=== PATIENT | male | born 1965 | race Caucasian/White ===

== ENCOUNTER 2023-05-04 22:54 | Inpatient (IN) | payer OTHER, SELFPAY ==
[2023-05-04 16:10] VITALS: BMI 19.4
[2023-05-04 16:36] VITALS: BP 121/69
[2023-05-04 17:05] LABS: % Eosinophils 7.6 % (0-6); % Lymphocytes 69.6 % (20.5-51.1); % Monocytes 3.8 % (1.7-9.3); Absolute Eosinophils 0.1 10^3/uL (0-0.7); Absolute Lymphocytes 0.6 10^3/uL (1.2-3.4); Hematocrit 35.5 % (39.0-52.0); Hemoglobin 13.1 g/dL (13.0-18.0); Mean Corp Hgb Conc. 36.9 g/dL (33.0-37.0); Mean Corpuscular Volume 92.2 fL (80.0-94.0); Mean Platelet Volume 11.2 fL (7.4-10.4); Nucleated Red Blood Cells % 0 % (-); Platelet Count 69 10^3/uL (130-400); Red Blood Cell Count 3.85 10^6/uL (4.70-6.10); Red Cell Dist. Width 12.8 % (11.5-14.5)
[2023-05-04 17:19] LABS: Lactic Acid 0.9 mmol/L (0.7-2.0)
[2023-05-04 17:21] LABS: ALT (SGPT) 13 U/L (0-50); AST (SGOT) 23 U/L (17-59); Albumin 3.8 g/dl (3.5-5.0); Alkaline Phosphatase 68 U/L (38-126); Blood Urea Nitrogen 21 mg/dl (9-20); Calcium 8.6 mg/dl (8.4-10.2); Carbon Dioxide 30 mmol/L (22-30); Chloride 99 mmol/L (98-107); Glucose 102 mg/dl (70-99); Potassium 3.5 mmol/L (3.5-5.1); Sodium 135 mmol/L (135-145); Total Bilirubin 0.7 mg/dl (0.2-1.3); Total Protein 6.8 g/dl (6.3-8.2); eGFR > 60.00
[2023-05-04 17:28] LABS: Absolute Neutrophils 0.2 10^3/uL (1.4-6.5); White Blood Cell Count 0.8 10^3/uL (4.8-10.8)
[2023-05-04 17:54] LABS: COVID-19 Antigen Negative (Negative)
[2023-05-04 20:18] VITALS: BP 112/78
--- NOTE | 2023-05-04 20:31 | ED.GENMED ---
History of Present Illness
General
Chief Complaint: Abnormal Lab Value
Source: patient and spouse
Exam Limitations: none
Time Seen by Provider: 05/04/23 19:23
Nursing documentation reviewed up to this point in time: agreed with
Travel History
Have you had any contact with someone who has COVID-19?: No
Do you have any symptoms of coronavirus? Fever > 100 degrees, chills, cough, shortness of breath, sore throat, loss of taste or smell, muscle aches, or headache?: No
History of Present Illness
History of Present Illness:
57-year-old male with no reported chronic medical issues presents with his for evaluation of fever, cough, neutropenia. Patient reports that he has been feeling generally fatigued and unwell and has gotten sick more than usual over the past
year. He had outpatient blood work on Tuesday which showed that he had new onset leukopenia and thrombocytopenia. He was supposed to follow-up with oncology an appointment tomorrow at 9 AM (Dr. Meadows). Unfortunately he has been feeling unwell over
the past few days says he has been coughing and had fevers with a Tmax 102 �F. He says he has been feeling fatigued and has had some bodyaches and chills. Denies any chest pain or shortness of breath. No nausea, vomiting, diarrhea. No abdominal
pain. No urinary symptoms. Oncology referred to the emergency room to assess given fevers and outpatient neutropenia.
Review of Systems
Review of Systems
All Other Systems: ROS reviewed and negative except as documented in HPI and ROS
Constitutional: Reports fever, fatigue and chills
EENT: Denies sore throat or runny nose
Respiratory: Reports cough; Denies trouble breathing
Cardiac: Denies chest pain or palpitations
ABD/GI: Denies abdominal pain, nausea, vomiting or diarrhea
: Denies dysuria, frequency or flank pain
Musculoskeletal: Denies neck pain or back pain
Neurological: Denies headache, weakness or numbness
Phy Exam
Physical Exam
Physical Exam:
General: Awake, alert, oriented x3; no acute distress
Head: Normocephalic, atraumatic
Eyes: Conjunctiva normal, sclera anicteric
Throat: Airway intact, handling secretions
Neck: Trachea midline, supple without meningismus
Lungs: Normal pulse ox on room air, normal respiratory, left lower lobe rales appreciated
Heart: Regular rate and rhythm, no murmurs, gallops, or rubs
Abd: Soft, non distended, nontender
Neuro: Cranial nerves grossly intact, speech fluid
Skin: no rash
Extremities: No edema in extremities, equal pulses in all extremities
Scores
Heart Failure Risk
Heart Failure Risk Score: Not Applicable
Heart Score for Chest Pain Patients
STEMI patient?: Not applicable
Withdrawal Assessment of Alcohol
Withdrawal Assessment Completed?: Not applicable
Course
Orders/Labs/Results
Orders:
Orders
05/04/23 16:51
COVID-19 Antigen Urgent
Source: Nasal Swab
Complete Blood Count/With Diff Urgent
Comprehensive Metabolic Panel Urgent
Lactic Acid Urgent
Blood Culture Urgent
[facility]AR[facility] Source: Blood/Venous
Specimen Description:
Influenza A+B Rapid Molecular Urgent
GARFIELD Source: Nasal Swab
Specimen Description:
05/04/23 20:21
ONCOLOGY CONSULT Urgent
Consulting Provider: Ed Meadows
Was physician already notified: Yes
CR Chest - 2 Views Urgent
Comment:
Reason For Exam: cough, fever, LLL rales
05/04/23 20:49
Urinalysis Reflex To Culture Urgent
Date Specimen was Collected: 05/04/23
Time Specimen was Collected: 20:32
Blood Culture Q30M
GARFIELD Source: Blood/Venous
Specimen Description:
05/04/23 21:39
Cefepime HCl [Maxipime] 1,000 mg IV NOW STA
Vancomycin [Vancocin] 1,500 mg 0.9% Sodium Chloride [Nss] 20 ml 0.9% Sodium Chloride 250 ml [Nss] 250 ml IV NOW
Abnormal Lab Results
05/04/23 05/04/23
16:51 20:49
WBC 0.8 L* 10^3/uL
(4.8-10.8)
RBC 3.85 L 10^6/uL
(4.70-6.10)
Hct 35.5 L %
(39.0-52.0)
MCH 34.0 H pg
(27.0-31.0)
Plt Count 69 L 10^3/uL
(130-400)
MPV 11.2 H fL
(7.4-10.4)
Absolute Neuts (auto) 0.2 L* 10^3/uL
(1.4-6.5)
Absolute Lymphs (auto) 0.6 L 10^3/uL
(1.2-3.4)
Absolute Monos (auto) 0.0 L 10^3/uL
(0.1-0.6)
Neutrophils % 19.0 L %
(42.2-75.2)
Lymphocytes % 69.6 H %
(20.5-51.1)
Eosinophils % 7.6 H %
(0-6)
BUN 21 H mg/dl
(9-20)
Glucose 102 H mg/dl
(70-99)
Urine Ketones 2+ A
(Negative)
05/04/23 16:51
05/04/23 16:51
Vital Signs
Initial and Last Documented VS:
Initial Vital Signs
Temp Pulse Resp BP Pulse Ox
36.7 C 80 20 121/69 98
05/04/23 16:36 05/04/23 16:36 05/04/23 16:36 05/04/23 16:36 05/04/23 16:36
Last Documented Vital Signs
Temp Pulse Resp BP Pulse Ox
36.8 C 80 16 113/74 97
05/04/23 20:18 05/04/23 20:18 05/04/23 20:18 05/04/23 21:31 05/04/23 21:32
MDM/Problems Addressed
Differential Diagnosis Includes:
Neutropenic fever, bacteremia, UTI, pneumonia, viral syndrome
MDM/Problems Addressed:
57-year-old male presents for evaluation of fever, cough, chills for the past few days in the setting of recently discovered neutropenia. Fortunately vital signs are normal and patient is afebrile here. Physical exam as above. Plan to place an IV
check labs including a CBC and a CMP, blood cultures. Will send a urinalysis and culture. Check viral swabs. Check a chest x-ray. Monitor closely reassess after the above.
CBC reviewed shows neutropenia with an ANC of 200, thrombocytopenia with a platelet count of 69,000; hemoglobin normal. CMP no clinically significant abnormalities. Viral swabs are been negative. Discussed case with oncology agreed with
infectious workup as above to start.
Chest x-ray concerning for left lower lobe pneumonia. Given neutropenia will treat with IV antibiotics admit for continued management. Consult to hematology/oncology to evaluate while admitted. Case discussed with hospitalist for admission.
*Radiology
Radiology exam reviewed: preliminary read by ED provider and radiology read reviewed
*Pulse Oximetry
Patient hypoxic: no
*Critical Care Note
Total Time (30-74mins, 75-104mins- exclusive of procedures): Not Applicable
Data Reviewed
Source: patient and spouse
Patient Management
Discussion with other providers: Hospitalist (Discussed with hospitalist) and [place] (Discussed with oncology)
Escalation/DeEscalation of care consider admission/obs:
Admission indicated
ED Attending Note
-
Portions of this chart may have been created with voice recognition software.� Occasional wrong word or��sound alike� substitutions may have occurred due to the inherent limitations of voice recognition software.
Discharge Plan
Departure
Patient Disposition: Admit
Date of Disposition: 05/04/23
Time of Disposition: 21:46
Admit to doctor: Robert
Presentation/result/management discussed w/ accepting MD/DO: Hospitalist
Discharge Problem:
Pneumonia, Neutropenia
Prescriptions:
No Action
acetaminophen [Tylenol] 325 mg Tablet
650 mg PO Q6HPRN PRN (Reason: mild pain)
zinc sulfate 50 mg zinc (220 mg) Tablet
50 mg PO DAILY
ascorbic acid (vitamin C) [Vitamin C] 500 mg Tablet
500 mg PO DAILY
vitamin B complex [B Complete] Tablet
1 tab PO DAILY
Referrals:
Marcos Dumont MD [Family Provider] -
Interventions
Interventions:
*Risk Screen - Suicide Last Done: 05/04/23 16:36
*General Assessment Last Done: 05/04/23 16:36
*Neglect/Abuse Screening Last Done: 05/04/23 16:36
ED- Fall Risk Assessment Last Done: 05/04/23 20:18
*ED COVID-19 Vaccine History Last Done: 05/04/23 20:17
[2023-05-04 21:15] LABS: Urine Albumin Trace (Neg - Trace); Urine Bilirubin Negative (Negative); Urine Character Clear (Clear); Urine Color Yellow; Urine Glucose Negative (Negative); Urine Ketone 2+ (Negative); Urine Leukocyte Negative (Negative); Urine Nitrite Negative (Negative); Urine Occult Blood Negative (Negative); Urine Specific Gravity 1.025 (<1.030); Urine Urobilinogen 1+ (Neg - 1+)
[2023-05-04 21:31] VITALS: BP 113/74
[2023-05-04 22:00] VITALS: BP 110/73
[2023-05-04] MEDS: MAXIPIME 1000 MG IV (22:19)
[2023-05-04] MEDS: VANCOCIN 300 MG IV (22:21)
[2023-05-04] MEDS: VANCOCIN 300 ML IV (22:21)
--- NOTE | 2023-05-04 22:34 | HPS.HSE ---
Family Physician
-
Family Physician: Marcos Dumont MD
Chief Complaint
-
cough, fever
History of Present Illness
57-year-old male with past medical history of SVT, leukopenia presenting for fever, cough and neutropenia. Patient developed weakness, productive cough, nausea, shortness of breath and fevers over the past 3 to 4 days. He had outpatient blood work
on Tuesday which showed that he had worsening leukopenia and new onset thrombocytopenia. He was supposed to follow-up with oncology and an appointment tomorrow at [address] Meadows. Fortunately has not been feeling well over the past few days and
has been coughing with fever of 102. He has body aches and chills. Denies any chest pain or shortness of breath. Denies nausea vomiting or diarrhea. Denies any abdominal pain. Denies any urinary symptoms. Oncology referred him to the emergency
room given fever and neutropenia.
He had a history of mild leukopenia in the past that was being monitored.
No smoking or alcohol use.
No family history of leukemia. Father had gastric cancer. Father had prostate cancer. Father's father had brain cancer. Some other cancers in the family as well.
Medical History
Past Medical History
Past Medical History: Reports Other ( SVT, leukopenia)
Past Surgical History: Reports Orthopedic
Social History
Tobacco: Non-smoker
Alcohol: None
Drug: None
Family History
Family History: Not pertinent
Allergies / Home Medications
Allergies reflects when Allergies were last updated in [facility].
Home Medications with original date entered in [facility]
Allergy/Medication List:
Allergies
Allergy/AdvReac Type Severity Reaction Status Date / Time
No Known Allergies Allergy Verified 05/04/23 16:35
Home Medications
acetaminophen 325 mg tablet (Tylenol) 650 mg PO Q6HPRN PRN mild pain 05/04/23
ascorbic acid (vitamin C) 500 mg tablet (Vitamin C) 500 mg PO DAILY 05/04/23
vitamin B complex 1 tab PO DAILY 05/04/23
zinc sulfate 50 mg zinc (220 mg) tablet 50 mg PO DAILY 05/04/23
Review of Systems
-
History Source: Patient
A 12 point ROS was completed and negative except as noted: Yes
Constitutional: Reports No Symptoms
EENT: Reports No Symptoms
Respiratory: Reports See HPI
Cardiac: Reports No Symptoms
Abdomen/GI: Reports No Symptoms
: Reports No Symptoms
Musculoskeletal: Reports No Symptoms
Skin: Reports No Symptoms
Neurological: Reports No Symptoms
Endocrine: Reports No Symptoms
Hematologic/Lymphatic: Reports No Symptoms
Psych: Reports No Symptoms
Physical Exam
Vital Signs
Vital Signs
Temp Pulse Resp BP Pulse Ox
98.3 F 80 16 113/74 97
05/04/23 20:18 05/04/23 20:18 05/04/23 20:18 05/04/23 21:31 05/04/23 21:32
Physical Exam
General: Well Developed, Well Nourished and No Apparent Distress
HEENT: NormoCephalic, Moist mucous membranes and Atraumatic
Respiratory: Clear
Cardiac: S1/S2 and Regular Rhythm; No Murmur or Rub
GI: Soft, Non Tender, Non Distended and Normal Bowel Sounds; No Organomegaly
Rectal: Deferred by Provider
Musculoskeletal: No Clubbing, No Cyanosis and No Edema
Skin: No Rash
Neuro: Nonfocal/grossly intact
Laboratory Results
-
05/04/23 16:51
05/04/23 16:51
Laboratory Results
Lactic Acid 0.9 mmol/L (0.7-2.0) 05/04/23 16:51
Total Bilirubin 0.7 mg/dl (0.2-1.3) 05/04/23 16:51
AST 23 U/L (17-59) 05/04/23 16:51
ALT 13 U/L (0-50) 05/04/23 16:51
Alkaline Phosphatase 68 U/L (38-126) 05/04/23 16:51
Data Reviewed
-
Lab Data: Labs Reviewed by me
Old Records: Reviewed
Impression/Plan
-
IMPRESSION:
PLAN:
# Neutropenic sepsis (leukopenia, fever) secondary to pneumonia
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
-Absolute neutrophils of 200
-COVID-negative
-Influenza negative
-Check blood cultures
-IV fluids
-Vancomycin/Zosyn
-Oncology consulted
# Thrombocytopenia likely due to underlying hematologic process
-Platelets of 70
History of SVT
Full code
DVT prophylaxis SCDs
Regular diet
[2023-05-04 23:00] VITALS: BP 114/83
[2023-05-05 00:15] VITALS: BP 121/70; BMI 19.5
--- NOTE | 2023-05-05 00:18 | PTCARENOTE ---
Pt arrived to unit from the ED on a stretcher on r.a, and was ambulatory from stretcher to bed. Pt is in bed with at bedside, call cifuentes is in reach will continue to monitor.
[2023-05-05] MEDS: NSS 1000 IV ×3 (01:20→15:20)
[2023-05-05 04:52] LABS: Hematocrit 27.3 % (39.0-52.0); Mean Corp Hgb Conc. 36.3 g/dL (33.0-37.0); Mean Corpuscular Hgb 33.4 pg (27.0-31.0); Mean Corpuscular Volume 92.2 fL (80.0-94.0); Mean Platelet Volume 12.2 fL (7.4-10.4); Platelet Count 59 10^3/uL (130-400); Red Blood Cell Count 2.96 10^6/uL (4.70-6.10); Red Cell Dist. Width 12.5 % (11.5-14.5)
[2023-05-05 05:00] LABS: Hemoglobin 9.9 g/dL (13.0-18.0); White Blood Cell Count 0.6 10^3/uL (4.8-10.8)
[2023-05-05] MEDS: ZOSYN 50 IV ×3 (05:06→18:22)
[2023-05-05 05:25] LABS: ALT (SGPT) < 10 U/L (0-50); AST (SGOT) 14 U/L (17-59); Albumin 2.2 g/dl (3.5-5.0); Alkaline Phosphatase 45 U/L (38-126); Blood Urea Nitrogen 11 mg/dl (9-20); Calcium 6.7 mg/dl (8.4-10.2); Carbon Dioxide 23 mmol/L (22-30); Chloride 109 mmol/L (98-107); Estimated Creatinine Clearance > 125 ml/min; Glucose 82 mg/dl (70-99); Potassium 3.2 mmol/L (3.5-5.1); Sodium 137 mmol/L (135-145); Total Bilirubin 0.6 mg/dl (0.2-1.3); Total Protein 4.7 g/dl (6.3-8.2); eGFR > 60.00
[2023-05-05 06:24] LABS: Hemoglobin 11.2 g/dL (13.0-18.0); Mean Corp Hgb Conc. 36.1 g/dL (33.0-37.0); Mean Corpuscular Hgb 33.4 pg (27.0-31.0); Mean Corpuscular Volume 92.5 fL (80.0-94.0); Mean Platelet Volume 11.5 fL (7.4-10.4); Platelet Count 59 10^3/uL (130-400); Red Blood Cell Count 3.35 10^6/uL (4.70-6.10); Red Cell Dist. Width 12.5 % (11.5-14.5)
[2023-05-05 06:26] LABS: White Blood Cell Count 0.6 10^3/uL (4.8-10.8)
[2023-05-05 06:38] LABS: ALT (SGPT) < 10 U/L (0-50); AST (SGOT) 20 U/L (17-59); Albumin 2.9 g/dl (3.5-5.0); Alkaline Phosphatase 58 U/L (38-126); Blood Urea Nitrogen 12 mg/dl (9-20); Calcium 7.9 mg/dl (8.4-10.2); Carbon Dioxide 27 mmol/L (22-30); Chloride 105 mmol/L (98-107); Estimated Creatinine Clearance 117 ml/min; Glucose 95 mg/dl (70-99); Potassium 3.7 mmol/L (3.5-5.1); Sodium 135 mmol/L (135-145); Total Bilirubin 0.8 mg/dl (0.2-1.3); Total Protein 5.7 g/dl (6.3-8.2); eGFR > 60.00
[2023-05-05 07:24] LABS: Band Neutrophils 0 % (0-3); Eosinophils 4 % (0-6); Lymphocytes 80 % (20-51); Monocytes 4 % (2-9); Normal RBC Morphology Yes; Platelets Checked Yes; Segmented Neutrophils 12 % (42-75); Total Cells Counted 100
[2023-05-05 07:30] VITALS: BP 128/82
[2023-05-05] MEDS: B COMPLEX w/VITAMIN C 1 CAPLET PO (08:58)
[2023-05-05] MEDS: ZINC SULFATE 220 MG PO (08:58)
[2023-05-05] MEDS: VITAMIN C 500 MG PO (08:59)
--- NOTE | 2023-05-05 09:31 | PHA.VAN.IN ---
Assessment
- Assessment
Renal Function: Appears similar to baseline
Concomitant Antimicrobials: piperacillin/tazobactam
AUC Dosing Plan
- Dosing Variables
Dosing Weight (kg): 87
Dosing CrCl (ml/min): 125
Vd coefficient (L/kg): 0.7
Utilized IBW for dosing weight since BMI < 20
- Empiric Dosing
Initial / Loading Dose: 1500mg - 05/04 22:21
Maintenance Regimen: Vanc 1500mg Q12H
Estimated AUC (mcg*h/mL): 493
Estimated Peak (mcg*h/mL): 33.9
Estimated Trough (mcg/ml): 10.9
Estimated Half Life (H): 6.4
- Monitoring
No levels ordered at this time: consider levels in next few days
MRSA Screen: Ordered per protocol
Pharmacokinetics Vancomycin I
- -
Patient Age: 57
Patient Sex: Male
Vancomycin Day #: 1
Indication: Pulmonary/Respiratory
Requesting Provider: Dr. Keane
Pertinent Antimicrobial Allergies:
NKDA
Height / Weight:
Height 6 ft 4 in
Actual Weight 72.575 kg
IBW in k.8
Pertinent Past Medical History: BMI ~19.5
- Vital Signs / Lab Results
Temp Pulse Resp BP Pulse Ox
98.0 F 69 20 128/82 96
05/05/23 07:30 05/05/23 07:30 05/05/23 07:30 05/05/23 07:30 05/05/23 07:30
Lab Results - Hematology
05/04/23 05/05/23 05/05/23
16:51 04:32 05:41
WBC 0.8 L* 0.6 L* 0.6 L*
Band Neutrophils 0 Cancelled
Lab Results - Chemistry
05/04/23 05/05/23 05/05/23
16:51 04:32 05:41
BUN 21 H 11 12
Creatinine 0.9 0.6 L 0.7
Estimated Creat Clear > 125 117
Albumin 3.8 2.2 L D 2.9 L
05/04/23
16:51
Lactic Acid 0.9
Lab Results - Urine
05/04/23
20:49
Urine Nitrite (Reflex) Negative
Leukocyte Esterase Rfl Negative
Microbiology Results
05/04/23 16:51 Influenza Types A & B ([facility]) - Final
Nasal Swab Negative for Influenza A & B, NAAT
Negative results must be combined with clinical observations
and patient history.
Nucleic Acid Amplification test (NAAT)performed on the
[employer] platform.
--- NOTE | 2023-05-05 11:05 | CM ---
Patient seen bedside.
IA completed.
Patient lives with spouse and 3 sons in a 2 story home with 8 steps to enter.
Patient with some difficulty with steps, but can manage.
Patient does not ambulate with assistive devices.
Patient can drive, but has not been recently due to weakness.
Has not had VN services in the past.
PCP: Dr Posadas, but sees TATYANA Yen
Pharmacy: [facility] in [place].
Plan: home, no needs anticipated.
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
[2023-05-05 15:55] VITALS: BP 129/73
--- NOTE | 2023-05-05 16:28 | W.PN.HOSP.TC ---
Today's Communication/Plan
-
All discussed with the patient and his at the bedside
Discussed with the nurse
Assessment / Plan
Assessment / Plan
Physical exam:
General: Pale looking, awake, alert and oriented x3, not in distress and holds appropriate conversation.
HEENT: No active discharge, ecchymosis or bruising, moist lips, tongue and mucous membrane.
Eyes: No discharge or red conjunctiva, no nystagmus, pupils are reactive and equal
Neck:Supple, no JVD no bruit no goiter.
Respiratory: Normal AP contour and diameter, normal chest wall movement, normal respiratory effort, no respiratory distress,
Lungs: Good air entry bilaterally, no wheezing or rhonchi, no rales or crackles
Heart: S1, S2 regular, normal rate, no added sound.
Gastrointestinal: Positive bowel sounds, soft, nontender, no guarding or rigidity or organomegaly
Musculoskeletal: , no chest wall abnormality or tenderness. All joints and extremities have good range of motion, no muscle tenderness or any joint swelling or tenderness.
Extremities: No pitting edema, good peripheral pulses, good range of motion
Skin: Warm and dry, no ulceration, normal color.
Neurological: Awake, alert and oriented x3, no facial droop, speech clear and comprehensive, good muscle tone, normal sensory and motor function
Psychiatric: Normal mood, normal thought and judgment, normal affect,
Assessment and plan:
# Neutropenic sepsis (leukopenia, fever) secondary to pneumonia, this is something new to me for his chronically neutropenic but usually stays above 3, never been so low.
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
-Absolute neutrophils of 200
-Neutropenic isolation.
Continue broad-spectrum biotic to cover pneumonia
IV fluid
Cough medication as needed
Blood cultures pending.
Recheck lab.
Left basilar pneumonia:
As above.
# Thrombocytopenia likely due to underlying hematologic process
-Platelets of 59 today.
No evidence of bleeding
Monitor
Hematology input appreciated type consider bone marrow biops
History of SVT
Full code
DVT prophylaxis SCDs
Anticipated Discharge: > 48 hours
Subjective/Interval History
-
Date of Service: May 05, 2023
Seen and examined, awake and alert, at the bedside, still having on and off fever and feeling lousy and lethargic and pale looking, denies any bleeding event or change in stool or urine color.
Still neutropenic and white cell count is same, 12.6. And he is on a reverse isolation.
Objective Data
-
Labs:
Laboratory Results
05/05/23 05/05/23
04:32 05:41
WBC 0.6 L* 0.6 L*
Hgb 9.9 L D 11.2 L
Hct 27.3 L 31.0 L
Plt Count 59 L 59 L
Sodium 137 135
Potassium 3.2 L 3.7
Chloride 109 H 105
Carbon Dioxide 23 27
BUN 11 12
Creatinine 0.6 L 0.7
Glucose 82 95
Calcium 6.7 L* D 7.9 L
Total Bilirubin 0.6 0.8
AST 14 L 20
ALT < 10 < 10
Alkaline Phosphatase 45 58
Vital Signs:
Vital Signs
Temp Pulse Resp BP Pulse Ox
97.8 F 77 17 129/73 99
05/05/23 15:55 05/05/23 15:55 05/05/23 15:55 05/05/23 15:55 05/05/23 15:55
I&O
05/04/23 05/05/23 05/06/23
07:59 07:59 07:59
Intake Total 420 / 420
Balance 420 / 420
Review of Systems
-
All other systems: Reviewed and negative
[2023-05-05] MEDS: VANCOCIN 300 ML IV (16:36)
[2023-05-05] MEDS: VANCOCIN 300 MG IV (16:36)
[2023-05-05 23:15] VITALS: BP 117/75
[2023-05-06] VITALS (8 sets, daily range): BP systolic 67–136; BP diastolic 75–96
[2023-05-06] MEDS: ZOSYN 50 IV ×4 (00:18→21:58)
[2023-05-06] MEDS: NSS 1000 IV (04:24)
[2023-05-06] MEDS: VANCOCIN 300 MG IV ×2 (07:01→18:08)
[2023-05-06] MEDS: VANCOCIN 300 ML IV ×2 (07:01→18:08)
[2023-05-06] MEDS: ZINC SULFATE 220 MG PO (08:16)
[2023-05-06] MEDS: B COMPLEX w/VITAMIN C 1 CAPLET PO (08:16)
[2023-05-06] MEDS: VITAMIN C 500 MG PO (08:16)
[2023-05-06 09:14] LABS: % Eosinophils 10.4 % (0-6); % Lymphocytes 52.2 % (20.5-51.1); % Monocytes 11.9 % (1.7-9.3); % Neutrophils 25.5 % (42.2-75.2); Absolute Eosinophils 0.1 10^3/uL (0-0.7); Absolute Lymphocytes 0.4 10^3/uL (1.2-3.4); Absolute Monocytes 0.1 10^3/uL (0.1-0.6); Hematocrit 34.8 % (39.0-52.0); Hemoglobin 12.3 g/dL (13.0-18.0); Mean Corp Hgb Conc. 35.3 g/dL (33.0-37.0); Mean Corpuscular Hgb 33.3 pg (27.0-31.0); Mean Corpuscular Volume 94.3 fL (80.0-94.0); Mean Platelet Volume 11.8 fL (7.4-10.4); Nucleated Red Blood Cells % 0 % (-); Platelet Count 76 10^3/uL (130-400); Red Blood Cell Count 3.69 10^6/uL (4.70-6.10); Red Cell Dist. Width 12.4 % (11.5-14.5)
[2023-05-06 09:21] LABS: INR 1.07; PT 13.7 Sec (11.4-14.6); White Blood Cell Count 0.7 10^3/uL (4.8-10.8)
--- NOTE | 2023-05-06 11:18 | W.PN.ONC ---
Addendum entered and electronically signed by Hao Hein MD 05/06/23 14:21:
Hematology Addendum - CORRECTION
Please disregard initial addendum below - as it is inaccurate documentation pertaining to another patient
-DOCUMENTATION CORRECTION:
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
-discussed w/ hospitalist who will contact [facility] for transfer of care and management/ treatment of AML
-discussed plan w/ patient and
-bone marrow specimen/ slides to be sent w/ patient to [facility]
Addendum entered and electronically signed by Hao Hein MD 05/06/23 13:07:
Hematology Addendum:
Agree w/ [employer] note and plan as outlined
-s/p bone marrow biopsy today
-per pathologist - preliminary findings of bone marrow smears - significant number of plasma cells replacing marrow
-additional morphology assessment - stains/ genetic testing/ bone marrow flow - pending
-creatinine normal - as is calcium - hemoglobin holding fairly stable
-will check margarita-blood flow, SPEP w/ immunofix, QIGs, and serum free light chains
-cont IVF/ antibiotics
-cont supportive care
Will continue to follow with you
Original Note:
Today's Communication / Plan
-
Strict neutropenic precautions: ANC 0
Monitor for recurrent fevers
CBC w/ diff daily
05/05 Hgb 12.3, PLT 76 (improved/stable)
Transfuse as needed to maintain Hgb >7, PLT>20
For bone marrow biopsy this AM in [facility] - reviewed with patient and spouse. (Tentative time 218)
Continue broad-spectrum abx
Supportive care
We will follow. Await biopsy report.
Impression
Impression
Febrile neutropenia
Acute thrombocytopenia
Acute leukopenia
Concern for AML/underlying hematologic process
Subjective/Objective
Subjective/Objective
Patient resting in bed. Denies fevers overnight. Anticipating bone marrow bx today. at bedside.
Vital Signs:
Vital Signs
Temp Pulse Resp BP Pulse Ox
98.2 F 53 16 122/75 95
05/06/23 08:05 05/06/23 08:05 05/06/23 08:05 05/06/23 08:05 05/06/23 08:05
physical exam unchanged.
Lab Results:
Laboratory Data
WBC 0.7 10^3/uL (4.8-10.8) L* 05/06/23 08:27
Hgb 12.3 g/dL (13.0-18.0) L 05/06/23 08:27
Plt Count 76 10^3/uL (130-400) L D 05/06/23 08:27
PT 13.7 Sec (11.4-14.6) 05/06/23 08:27
INR 1.07 05/06/23 08:27
eGFR > 60.00 05/05/23 05:41
Orders
Orders
Orders From Last 24 Hours
05/05/23 13:48
[facility] CONSULT Urgent
--- NOTE | 2023-05-06 11:46 | PHA.VAN.FU ---
Vancomycin Assessment / Plan
- Assessment
Renal Function: Stable
Neutropenia: ANC 0
In the past 24 hrs, patient has been: Afebrile
Concomitant Antimicrobials: piperacillin/tazobactam
- Dosing Plan
Continue: vancomycin 1500 mg q12h
- Monitoring Plan
No level(s) ordered at this time: consider levels after Saturday 05/06 cathy dose
- Follow Up
Pharmacy will continue to follow.
Vancomycin Follow UP
- -
Patient Age: 57
Patient Sex: Male
Vancomycin Day #: 2
Indication: Pulmonary/Respiratory
Requesting Provider: Dr. Keane
Pertinent Antimicrobial Allergies:
NKDA
Height / Weight:
Height 6 ft 4 in
Actual Weight 72.575 kg
IBW in k.8
Pertinent Past Medical History: BMI ~19.5
- Vital Signs / Lab Results
Temp Pulse Resp BP Pulse Ox
97.8 F 67 18 131/88 97
05/06/23 11:32 05/06/23 11:32 05/06/23 11:32 05/06/23 11:32 05/06/23 11:32
Lab Results - Hematology
05/04/23 05/05/23 05/05/23
16:51 04:32 05:41
WBC 0.8 L* 0.6 L* 0.6 L*
Band Neutrophils 0 Cancelled
05/06/23
08:27
WBC 0.7 L*
Band Neutrophils
Lab Results - Chemistry
05/04/23 05/05/23 05/05/23
16:51 04:32 05:41
BUN 21 H 11 12
Creatinine 0.9 0.6 L 0.7
Estimated Creat Clear > 125 117
Albumin 3.8 2.2 L D 2.9 L
05/04/23
16:51
Lactic Acid 0.9
Microbiology Results
05/05/23 05:52 Respiratory Culture - Preliminary
Sputum Usual Respiratory Mona
Gram Stain - Preliminary
05/04/23 20:49 Blood Culture - Preliminary
Blood/Venous No Growth in 24 hours- Final report to follow
05/04/23 16:51 Blood Culture - Preliminary
Blood/Venous No Growth in 24 hours- Final report to follow
05/05/23 12:21 Nasal Screen MRSA (PCR) - Final
Nose MRSA not detected - performed by PCR methodology.
05/04/23 16:51 Influenza Types A & B ([facility]) - Final
Nasal Swab Negative for Influenza A & B, NAAT
Negative results must be combined with clinical observations
and patient history.
Nucleic Acid Amplification test (NAAT)performed on the
[employer] platform.
[2023-05-06 12:02] LABS: Absolute Neutrophils 0.2 10^3/uL (1.4-6.5)
[2023-05-06] MEDS: ATIVAN 0.5 MG IV (12:03)
[2023-05-06] MEDS: NSS (PRESERVATIVE FREE) 0.25 ML IV (12:03)
[2023-05-06 14:06] LABS: LDH 185 U/L (120-246); Uric Acid 1.2 mg/dl (3.5-8.5)
--- NOTE | 2023-05-06 14:14 | W.DCSUMMARY ---
Addendum entered and electronically signed by Shannan Henry MD 05/09/23 19:58:
Other impression:
BMI is no significant
19.5.
Mention below that bone marrow showed 46% blast
Pancytopenia
Original Note:
Discharge Summary
Discharge Data
Date of Admission: 05/04/23
Date of Discharge: 05/06/23
-
Pending Results: No
Hospital Course
Discharging Physician : Dr. Shannan Henry
Disposition :
Primary care physician :
Principal Discharge diagnosis :
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
Acute sepsis
Neutropenic sepsis
Bilateral pneumonia
History of present illness:
57-year-old male with past medical history of SVT, leukopenia presenting for fever, cough and neutropenia.� Patient developed weakness, productive cough, nausea, shortness of breath and fevers over the past 3 to 4 days. He had outpatient blood work
on Tuesday which showed that he had worsening leukopenia and new onset thrombocytopenia.� He was supposed to follow-up with oncology and an appointment tomorrow at [address] Meadows.� Fortunately has not been feeling well over the past few days and
has been coughing with fever of 102.� He has body aches and chills.� Denies any chest pain or shortness of breath.� Denies nausea vomiting or diarrhea.� Denies any abdominal pain.� Denies any urinary symptoms.� Oncology referred him to the emergency
room given fever and neutropenia.
He had a history of mild leukopenia in the past that was being monitored.
No smoking or alcohol use.
No family history of leukemia.� Father had gastric cancer.� Father had prostate cancer.� Father's father had brain cancer.� Some other cancers in the family as well.
Hospital Course :
So patient admitted complaining of fever and chill and cough for the workup showed bilateral pneumonia and severe neutropenia. Put on a reverse and neutropenic isolation, started on IV vancomycin and Zosyn.
Also given IV fluids and seen by answering service agent.
Overall was feeling better, antibiotic and fluids were continued until today where he had a bone marrow biopsy which showed acute pneumonia with 46% blast, case discussed with Dr. Hao Hein who is oncologist here in the hospital and the was very
necessary and urgently to be transferred to tertiary center as [facility] were chosen and I personally called the transfer center and ended up speaking to the answering service agent Dr. Javier after explaining the patient's condition
he kindly accepted the transfer. All of these discussed with the patient and his in detail also discussed with him by oncologist.
All the biopsy and the slides again to be sent with the patient which is we may try and personally spoke to the pathology lab.
Discharge Plan
-
Patient Disposition: Acute Care Hospital
Condition: Serious
Discharge Orders:
Discharge Patient (As Directed); Ordered 05/06/23
Ordered By: Shannan Henry
--- NOTE | 2023-05-06 14:37 | CM ---
Patient for transfer to [place] today.
Transfer forms on the front of chart for MD to fill out.
No insurance authorization required.
Await bed availability.
Plan: transfer to [place] today, once bed available.
--- NOTE | 2023-05-06 14:59 | PN.CDI ---
CDI
- -
CDI:
Physician Documentation Request
Admit Date: 05/04/23 22:54
Dear Doctor Carl,
Patient admitted with sepsis.
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
Clinical Indicators:
Height: 6' 4'
Weight:160 lbs
BMI:19.5
If possible, please provide an associated diagnosis related to the abnormal BMI, such as:
Underweight
Cachexia
BMI is not significant
Other
BMI < or = to 19.9
Underweight
Weight Loss
Cachectic
Anorexia
Use of terms such as suspected, likely, concern for, or probable (associated with a specific diagnosis that is being evaluated, monitored, or treated as if it exists) are acceptable and can be coded in the inpatient setting, when documented at the
time of discharge.
Thank you,
Sari Whitehead RN, BSN
CDI Specialist
Available via [place] text
Please use your independent medical judgment in providing your response.
--- NOTE | 2023-05-06 15:06 | PN.CDI ---
CDI
- -
CDI:
Physician Documentation Request
Admit Date: 05/04/23 22:54
Dear Doctor Carl,
Patient admitted with sepsis.
Laboratory Tests
05/05/23 05/05/23 05/06/23
04:32 05:41 08:27
WBC 0.6 L* 0.6 L 0.7 L
RBC 2.96 L 3.35 L 3.69 L
Hgb 9.9 L 11.2 L 12.3 L
Plt Count 59 L 59 L 76 L
Based on the above, could you clarify in the progress notes, the appropriate diagnosis, if significant, that supports the above abnormalities and additional evaluation, monitoring and/or treatment rendered:
Pancytopenia
Abnormal lab values insignificant
Other
Use of terms such as suspected, likely, concern for, or probable (associated with a specific diagnosis that is being evaluated, monitored, or treated as if it exists) are acceptable and can be coded in the inpatient setting, when documented at the
time of discharge.
Thank you,
Sari Whitehead RN, BSN
CDI Specialist
Available via [place] text
Please use your independent medical judgment in providing your response.
[2023-05-06] MEDS: ZYLOPRIM 300 MG PO (15:27)
[2023-05-06] MEDS: ZOSYN IV (19:32)
[2023-05-07] MEDS: ZOSYN 50 IV (03:03)
[2023-05-11 10:07] LABS: Albumin 3.36 g/dL (3.75-5.01); Alpha 1 Globulin 0.53 g/dL (0.19-0.46); Alpha 2 Globulin 1.07 g/dL (0.48-1.05); SPEP IFE Reflex IFE Done; Total Protein-Electrophoresis 6.7 g/dL (6.3-8.2)
[2023-05-11 10:26] LABS: IgA 267 mg/dL (68-408); IgG 958 mg/dL (768-1632); IgM 82 mg/dL (35-263)
== END 2023-05-07 03:42 | disposition short-term general hospital (02) | DRG 834 ==
LOC: 4 WEST ACU 22:54
PROVIDERS: Internal Medicine Hematology & Oncology; Nurse Practitioner Family; Radiology Vascular & Interventional Radiology; Student in an Organized Health Care Education/Training Program; ADMITTING PHYSICIAN Hospitalist; ATTENDING PHYSICIAN Internal Medicine; EMERGENCY PHYSICIAN Emergency Medicine; FAMILY PHYSICIAN Family Medicine; OTHER PHYSICIAN Internal Medicine Hematology & Oncology
PROC: 07DR3ZX Extraction of Iliac Bone Marrow, Percutaneous Approach, Diagnostic (ICD-10-PCS; 2023-05-06)
PROC: 079T3ZX Drainage of Bone Marrow, Percutaneous Approach, Diagnostic (ICD-10-PCS; 2023-05-06)
DX: C92.00 Acute myeloblastic leukemia, not having achieved remission (principal); A41.9 Sepsis, unspecified organism; J18.9 Pneumonia, unspecified organism; D61.818 Other pancytopenia; R50.81 Fever presenting with conditions classified elsewhere; D70.9 Neutropenia, unspecified; D69.59 Other secondary thrombocytopenia; R51.9 Headache, unspecified; Z11.52 Encounter for screening for COVID-19; Z80.0 Family history of malignant neoplasm of digestive organs; Z80.42 Family history of malignant neoplasm of prostate; Z80.8 Family history of malignant neoplasm of other organs or systems
CPT/HCPCS: 88312; 38222; 71046; 77012; 80053; 81003; 82784; 83605; 83615; 84155; 84165; 84550; 85025; 85027; 85610; 86334; 87040; 87070; 87205; 87502; 87641; 87811; 96365; 96366; 96375; 99284